=== PATIENT | male | born 1930 | race Caucasian/White ===

== ENCOUNTER 2019-04-28 00:28 | Emergency (ER) | payer OTHER ==
[~2019-04-28] VITALS: Ht 170.2 cm; Wt 77.1 kg
[~2019-04-28 00:28] MED LIST: AREDS PO; ASPI325 PO; ASPI325EC; ASPI81CH; ASTEPRO NASAL SPRAY; AZIT250 PO; CLOP75 PO; COLE625 PO; CYAN1000 PO; CYANOCOBALAMIN 1000 MCG; CYCL10 PO; DIAZ5 PO; DIPHENIA PO; EZET10; EZET10 PO; GUAI200 PO; HYDACE5 PO; INDO50; INSLIS75I SC; LISI20 PO; MESA400ER; MESA400ER PO; OMEP20ER; OMEP20ER PO; PROCODE120 PO; SULF500A; SULF500A PO; [UNRECOGNIZED DRUG - OTHER]
[2019-04-28] MEDS ORDERED: PRED20 PO (00:49)
[2019-04-28] MEDS ORDERED: Prinivil10 MG PO (00:50)
[2019-04-28] MEDS ORDERED: ASPI81CH PO (00:50)
[2019-04-28] MEDS ORDERED: OSTERA TABLET1 EACH PO (00:51)
[2019-04-28] MEDS ORDERED: VIT1CAPS12 (00:52)
[2019-04-28 01:02] LABS: BASOPHILS ABSOLUTE AUTO 0.02 K/mm3 (0.00-0.23); BASOPHILS PERCENT AUTO 0 % (0-2); EOSINOPHILS PERCENT AUTO 0 % (0-6); Hematocrit 41.9 % (37.0-53.0); Hemoglobin 13.5 g/dL (13.5-17.5); IMMATURE GRAN ABSOLUTE AUTO 0.06 K/mm3 (0.00-0.10); IMMATURE GRAN PERCENT AUTO 1 % (0-1); LYMPHOCYTES ABSOLUTE AUTO 1.63 K/mm3 (0.84-5.20); LYMPHOCYTES PERCENT AUTO 14 % (21-46); MONOCYTES ABSOLUTE AUTO 0.83 K/mm3 (0.16-1.47); MONOCYTES PERCENT AUTO 7 % (4-13); Mean Corpuscular HGB 30.7 pg (26.0-34.0); Mean Corpuscular HGB Conc 32.2 g/dL (31.5-36.5); Mean Corpuscular Volume 95 fL (80-100); Mean Platelet Volume 9.8 fL (9.1-12.4); NEUTROPHILS ABSOLUTE AUTO 9.08 K/mm3 (1.96-9.15); NEUTROPHILS PERCENT AUTO 78 % (41-73); Platelet Count 252 K/mm3 (150-400); RDW Coefficient Variation 13.2 % (11.7-14.2); RDW Standard Deviation 46.7 fL (35.1-46.3); White Blood Cell Count 11.62 K/mm3 (4.00-11.30)
[2019-04-28 01:22] LABS: Alanine Aminotransfer (ALT/SGP 19 U/L (12-78); Albumin, Blood 3.5 g/dL (3.4-5.0); Albumin/Globulin Ratio 0.8 (0.8-1.8); Alk Phos 104 U/L (50-136); Anion Gap 8 mmol/L (6-16); Aspartate Aminotrans (AST/SGOT 23 U/L (12-37); Bilirubin, Total 0.2 mg/dL (0.1-1.0); Blood Urea Nitrogen 42 mg/dL (8-24); Bun/Creatinine Ratio 36.2 (12.0-20.0); CO2, Blood 25 mmol/L (21-32); Calcium, Blood 9.2 mg/dL (8.5-10.1); Chloride, Blood 110 mmol/L (98-108); Creatinine, Blood 1.16 mg/dL (0.60-1.20); Globulin, Blood 4.4 g/dL (2.2-4.0); Glomerular Filtration Rate >60 (60-); Glucose, Blood 144 mg/dL (70-99); Potassium, Blood 4.4 mmol/L (3.5-5.5); Sodium, Blood 143 mmol/L (136-145); Total Protein, Blood 7.9 g/dL (6.4-8.2); Troponin I <0.015 ng/mL (0.000-0.040)
== END 2019-04-28 05:34 | disposition home or self-care (01) ==
LOC: ER 00:28
PROVIDERS: Emergency Medicine
DX: R42 Dizziness and giddiness (principal); I10 Essential (primary) hypertension; K21.9 Gastro-esophageal reflux disease without esophagitis; Z79.82 Long term (current) use of aspirin; Z79.899 Other long term (current) drug therapy
CPT/HCPCS: 36415; 71046; 80053; 84484; 85025; 93005; 93010; J2405

== ENCOUNTER 2019-06-01 21:10 | Inpatient (IN) | payer OTHER ==
[~2019-06-01] VITALS: Ht 170.2 cm; Wt 68.0 kg
[~2019-06-01 21:10] MED LIST changes: +Aspirin EC81 MG PO; +MULTIVITAMIN1 EACH PO; +PRED20 PO; +Prinivil10 MG PO; +VIT1CAPS12 PO
[2019-06-01 22:04] LABS: BASOPHILS ABSOLUTE AUTO 0.06 K/mm3 (0.00-0.23); BASOPHILS PERCENT AUTO 1 % (0-2); EOSINOPHILS ABSOLUTE AUTO 0.11 K/mm3 (0.00-0.68); EOSINOPHILS PERCENT AUTO 2 % (0-6); Hematocrit 41.2 % (37.0-53.0); Hemoglobin 13.5 g/dL (13.5-17.5); IMMATURE GRAN ABSOLUTE AUTO 0.01 K/mm3 (0.00-0.10); IMMATURE GRAN PERCENT AUTO 0 % (0-1); LYMPHOCYTES ABSOLUTE AUTO 1.19 K/mm3 (0.84-5.20); LYMPHOCYTES PERCENT AUTO 22 % (21-46); MONOCYTES ABSOLUTE AUTO 0.82 K/mm3 (0.16-1.47); MONOCYTES PERCENT AUTO 15 % (4-13); Mean Corpuscular HGB 30.5 pg (26.0-34.0); Mean Corpuscular HGB Conc 32.8 g/dL (31.5-36.5); Mean Corpuscular Volume 93 fL (80-100); Mean Platelet Volume 9.8 fL (9.1-12.4); NEUTROPHILS ABSOLUTE AUTO 3.33 K/mm3 (1.96-9.15); NEUTROPHILS PERCENT AUTO 60 % (41-73); Platelet Count 240 K/mm3 (150-400); RDW Coefficient Variation 13.6 % (11.7-14.2); RDW Standard Deviation 46.5 fL (35.1-46.3); Red Blood Cell Count 4.43 M/mm3 (4.30-5.90); White Blood Cell Count 5.52 K/mm3 (4.00-11.30)
[2019-06-01 22:19] LABS: International Normalized Ratio 1.01; Prothrombin Time Results 10.8 Sec (9.7-11.5)
[2019-06-01 22:23] LABS: Albumin/Globulin Ratio 0.7 (0.8-1.8); Bilirubin, Total 0.4 mg/dL (0.1-1.0); Bun/Creatinine Ratio 25.3 (12.0-20.0); Calcium, Blood 9.4 mg/dL (8.5-10.1); Creatinine, Blood 1.66 mg/dL (0.60-1.20); Globulin, Blood 4.1 g/dL (2.2-4.0); Potassium, Blood 4.7 mmol/L (3.5-5.5); Total Protein, Blood 7.1 g/dL (6.4-8.2)
[2019-06-02 00:48] LABS: Source, Urine Clean Catch
[2019-06-02 00:56] LABS: Bilirubin, Urine Neg (Neg); Blood, Urine 3+ (Neg); Glucose Qualitative, Urine Neg (Neg); Ketones, Urine 1+ (Neg); Leukocyte Esterase, Urine 3+ (Neg); Nitrite, Urine Neg (Neg); Protein, Urine 2+ (Neg); Specific Gravity, Urine 1.015 (1.003-1.022); Urobilinogen, Urine NORM (Normal)
[2019-06-02 01:03] LABS: Appearance, Urine Hazy (Clear); Color, Urine Yellow (P-Yellow)
[2019-06-02 01:04] LABS: Bacteria Many /hpf; Red Blood Cells, Urine Rare /hpf (0-2); Squamous Epithelial Cells Not Seen /hpf (Few); White Blood Cells, Urine TNTC /hpf (0-5)
[2019-06-02 03:21] LABS: Adenovirus Not Detected (NOT DETECT); Bordetella pertussis Not Detected (NOT DETECT); Chlamydophila pneumoniae Not Detected (NOT DETECT); Coronavirus 229E Not Detected (NOT DETECT); Coronavirus HKU1 Not Detected (NOT DETECT); Coronavirus NL63 Not Detected (NOT DETECT); Coronavirus OC43 Not Detected (NOT DETECT); Human Metapneumovirus Not Detected (NOT DETECT); Human Rhinovirus/Enterovirus Not Detected (NOT DETECT); Influenza A/2009-H1 Not Detected (NOT DETECT); Influenza A/H1 Not Detected (NOT DETECT); Influenza A/H3 Not Detected (NOT DETECT); Influenza B Not Detected (NOT DETECT); Mycoplasma pneumoniae Not Detected (NOT DETECT); Parainfluenza Virus 1 Not Detected (NOT DETECT); Parainfluenza Virus 2 Not Detected (NOT DETECT); Parainfluenza Virus 3 Not Detected (NOT DETECT); Parainfluenza Virus 4 Not Detected (NOT DETECT); Respiratory Syncytial Virus Not Detected (NOT DETECT)
[2019-06-03 05:43] LABS: Bun/Creatinine Ratio 22.8 (12.0-20.0); Calcium, Blood 9.3 mg/dL (8.5-10.1); Creatinine, Blood 1.45 mg/dL (0.60-1.20); Potassium, Blood 4.6 mmol/L (3.5-5.5)
[2019-06-04 05:32] LABS: BASOPHILS ABSOLUTE AUTO 0.08 K/mm3 (0.00-0.23); BASOPHILS PERCENT AUTO 2 % (0-2); EOSINOPHILS ABSOLUTE AUTO 0.18 K/mm3 (0.00-0.68); EOSINOPHILS PERCENT AUTO 4 % (0-6); Hematocrit 38.6 % (37.0-53.0); Hemoglobin 12.2 g/dL (13.5-17.5); IMMATURE GRAN ABSOLUTE AUTO 0.02 K/mm3 (0.00-0.10); IMMATURE GRAN PERCENT AUTO 0 % (0-1); LYMPHOCYTES PERCENT AUTO 30 % (21-46); MONOCYTES ABSOLUTE AUTO 0.94 K/mm3 (0.16-1.47); MONOCYTES PERCENT AUTO 20 % (4-13); Mean Corpuscular HGB 29.8 pg (26.0-34.0); Mean Corpuscular HGB Conc 31.6 g/dL (31.5-36.5); Mean Corpuscular Volume 94 fL (80-100); NEUTROPHILS ABSOLUTE AUTO 2.01 K/mm3 (1.96-9.15); NEUTROPHILS PERCENT AUTO 44 % (41-73); Platelet Count 205 K/mm3 (150-400); RDW Coefficient Variation 13.7 % (11.7-14.2); RDW Standard Deviation 47.2 fL (35.1-46.3); White Blood Cell Count 4.63 K/mm3 (4.00-11.30)
[2019-06-04 05:58] LABS: Bun/Creatinine Ratio 21.6 (12.0-20.0); Calcium, Blood 9.5 mg/dL (8.5-10.1); Creatinine, Blood 1.48 mg/dL (0.60-1.20); Potassium, Blood 4.7 mmol/L (3.5-5.5)
[2019-06-04] MEDS ORDERED: Augmentin 875-1 EACH PO (10:01)
== END 2019-06-04 10:34 | disposition home or self-care (01) | DRG 189 ==
LOC: ER 21:10 → MEDS 06-02 01:34 → ENPENDDIS 06-04 09:54 → MEDS 06-04 10:34
PROVIDERS: Emergency Medicine; Family Medicine; Internal Medicine; Nurse Practitioner; ADMIT Family Medicine
PROC: 8E0ZXY6 Isolation (ICD-10-PCS; principal; 2019-06-02)
DX: J96.01 Acute respiratory failure with hypoxia (principal); N17.9 Acute kidney failure, unspecified; N39.0 Urinary tract infection, site not specified; Z79.82 Long term (current) use of aspirin; K21.9 Gastro-esophageal reflux disease without esophagitis; N18.3 Chronic kidney disease, stage 3 (moderate); B96.20 Unspecified Escherichia coli [E. coli] as the cause of diseases classified elsewhere; I12.9 Hypertensive chronic kidney disease with stage 1 through stage 4 chronic kidney disease, or unspecified chronic kidney disease; Z87.891 Personal history of nicotine dependence
CPT/HCPCS: 0099U; 36415; 71045; 80048; 80053; 81001; 82728; 83605; 84145; 85025; 85610; 85730; 86140; 87040; 87077; 87086; 87186; 93005; 93010; 96374; 99285-25; A9270; A9270-GY; J0696; J1650; J7030; J7040

== ENCOUNTER 2019-06-04 21:37 | Inpatient (IN) | payer OTHER ==
[~2019-06-04] VITALS: Ht 170.2 cm; Wt 74.0 kg
[~2019-06-04 21:37] MED LIST changes: +ASPI81CH PO; -Aspirin EC81 MG PO; +Augmentin 875-1 EACH PO; -MULTIVITAMIN1 EACH PO; -OMEP20ER PO; +OSTERA TABLET1 EACH PO
[2019-06-04 22:34] LABS: BASOPHILS ABSOLUTE AUTO 0.04 K/mm3 (0.00-0.23); BASOPHILS PERCENT AUTO 1 % (0-2); EOSINOPHILS ABSOLUTE AUTO 0.16 K/mm3 (0.00-0.68); EOSINOPHILS PERCENT AUTO 4 % (0-6); Hematocrit 41.2 % (37.0-53.0); Hemoglobin 13.4 g/dL (13.5-17.5); IMMATURE GRAN ABSOLUTE AUTO 0.01 K/mm3 (0.00-0.10); IMMATURE GRAN PERCENT AUTO 0 % (0-1); LYMPHOCYTES ABSOLUTE AUTO 1.21 K/mm3 (0.84-5.20); LYMPHOCYTES PERCENT AUTO 27 % (21-46); MONOCYTES ABSOLUTE AUTO 0.77 K/mm3 (0.16-1.47); MONOCYTES PERCENT AUTO 17 % (4-13); Mean Corpuscular HGB 30.2 pg (26.0-34.0); Mean Corpuscular HGB Conc 32.5 g/dL (31.5-36.5); Mean Corpuscular Volume 93 fL (80-100); Mean Platelet Volume 9.7 fL (9.1-12.4); NEUTROPHILS ABSOLUTE AUTO 2.35 K/mm3 (1.96-9.15); NEUTROPHILS PERCENT AUTO 52 % (41-73); Platelet Count 206 K/mm3 (150-400); RDW Coefficient Variation 13.3 % (11.7-14.2); RDW Standard Deviation 45.8 fL (35.1-46.3); Red Blood Cell Count 4.43 M/mm3 (4.30-5.90); White Blood Cell Count 4.54 K/mm3 (4.00-11.30)
[2019-06-04] MEDS ORDERED: OMEP20ER PO (22:45)
[2019-06-04 22:49] LABS: Albumin, Blood 2.9 g/dL (3.4-5.0); Albumin/Globulin Ratio 0.7 (0.8-1.8); Bilirubin, Total 0.3 mg/dL (0.1-1.0); Calcium, Blood 10.6 mg/dL (8.5-10.1); Creatinine, Blood 1.54 mg/dL (0.60-1.20); Potassium, Blood 4.5 mmol/L (3.5-5.5); Total Protein, Blood 6.9 g/dL (6.4-8.2)
[2019-06-04 23:32] LABS: C-REACTIVE PROTEIN, EXT RANGE 6.85 mg/dL (0.000-0.300)
--- NOTE | 2019-06-05 00:37 | NUR ---
called ER to speak to BIANCA De La Garza who has been caring for 88 year old Male just DC home yesterday and being readmitted with fever and resp issues with SOB. PT has covid 19 test results pending will be in contact droplet precaution enhanced measures. Has resp panel collection pending and had UTI on dc was on oral augmentin will be given rocephin to tx. PT reports bladder CANCER with txs in [place] that are bladder instillations. Will be on bioxx to prevent hypoxia, oxygen to keep sats greater than 90%. Await admission for OBS status.
--- NOTE | 2019-06-05 01:08 | NUR ---
report recieved admission pending obs status. BIANCA De La Garza in ER will start rocephin.
--- NOTE | 2019-06-05 02:54 | NUR ---
88 year old Male dc home yeasterday back with fever at home and took tylenol then to ER. Afebile on floor. Rocephin given to tx ECOLI UTI. PT has hacking moist nonprod cough. Lungs clear. Recent covid 19 pending results neg resp panel. 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 Middle of May started tx for bladder cancer, instillation to bladder, cancelled next 2 txs due to oral infection & hospitalization. Lives alone has DTR Pat in area. Resp panel collected results pending.
[2019-06-05 04:16] LABS: Adenovirus Not Detected (NOT DETECT); Coronavirus 229E Not Detected (NOT DETECT); Coronavirus HKU1 Not Detected (NOT DETECT); Coronavirus NL63 Not Detected (NOT DETECT)
[2019-06-05 04:17] LABS: Bordetella pertussis Not Detected (NOT DETECT); Chlamydophila pneumoniae Not Detected (NOT DETECT); Coronavirus OC43 Not Detected (NOT DETECT); Human Metapneumovirus Not Detected (NOT DETECT); Human Rhinovirus/Enterovirus Not Detected (NOT DETECT); Influenza A/2009-H1 Not Detected (NOT DETECT); Influenza A/H1 Not Detected (NOT DETECT); Influenza A/H3 Not Detected (NOT DETECT); Influenza B Not Detected (NOT DETECT); Mycoplasma pneumoniae Not Detected (NOT DETECT); Parainfluenza Virus 1 Not Detected (NOT DETECT); Parainfluenza Virus 2 Not Detected (NOT DETECT); Parainfluenza Virus 3 Not Detected (NOT DETECT); Parainfluenza Virus 4 Not Detected (NOT DETECT); Respiratory Syncytial Virus Not Detected (NOT DETECT)
--- NOTE | 2019-06-05 05:10 | NUR ---
PT co chills and fever warm blankets and increased room temp. Resting for few hours than calls to report feeling fevered. Tylenol 650 mg po given and t 100.9. PT has poor oral intake sips with meds only. Voids x 2 , denies anorexia or wt loss. Ensure offered at bedside PT says he sips on ensure supplements baseline. PT up to bathroom sat 79 on room air after cough deep breath. Applied 2 l NC because PT was tachycardic to 130s. 100.9 temporal t pulse 112, o2 sat 94 % 2 l NC. Resp panel negative. Covid 19 results still pending
--- NOTE | 2019-06-05 13:03 | NUR ---
PATIENT COMPLAINING OF CHILLS. REQUESTED TYLENOL.
--- NOTE | 2019-06-05 16:57 | NUR ---
PATIENT IS ALERT AND ORIENTED AND COOPERATIVE WITH CARE. PATIENT HAS BEEN AFEBRILE THIS SHIFT. PATIENT DID COMPLAIN OF HAVING THE CHILLS AND SUSPECTED A FEVER WAS TO FOLLOW. TYLENOL WAS GIVEN AT THE PATIENT'S REQUEST. OF RIGHT NOW, THE PATIENT'S COMPLAINT OF "CHILLS" HAS SUBSIDED AND NO FEVER. PATIENT REPORTS FEELING BETTER. DR. RODRIGUEZ STARTED THE PATIENT ON IV LEVAQUIN 500MG TODAY. THE PATIENT HAS NO COMPLAINTS OF SOB. PATIENT IS ON RA WITH OXYGEN SATURATIONS IN THE 90'S. THE COVID-19 LAB TEST THAT WAS SENT A COUPLE DAYS AGO WAS INSUFFICIENT THEREFORE A NEW SAMPLE WAS COLLECTED AND SENT TO THE LAB THIS MORNING. WILL CONTINUE TO MONITOR.
--- NOTE | 2019-06-05 22:04 | NUR ---
rigors fever. PT has been having intermittant rigors and fevers for last 2 weeks. He has had cheomotherapy tx of bladder cancer started befire fevers began , oral abscess with root canal and hospitalized with rule out covid 19, UTI Ecoli & sent home on antibiotics augmentin to tx infection. back last night with rigors and fever at home after taking one dose of oral augmentin. Pt called to say he felt feverish oral t 101.6 Tylenol 650 mg given will recheck temp. Was started on rocephin last night changed to IV levaquin today. Encouraged oral intake and provided ensure supplements as per home preference. Encourged cough deep breathe to clear upper airway. Covid 19 repeated due to insufficent sample. Provide support for current illnesses.
--- NOTE | 2019-06-05 22:58 | NUR ---
temp 99.0 after tylenol administeration, rigors subsided per PT report. taking more oral fluids with encouragement and setup.
[2019-06-06 04:53] LABS: BASOPHILS ABSOLUTE AUTO 0.05 K/mm3 (0.00-0.23); BASOPHILS PERCENT AUTO 1 % (0-2); EOSINOPHILS PERCENT AUTO 2 % (0-6); Hematocrit 36.1 % (37.0-53.0); Hemoglobin 11.8 g/dL (13.5-17.5); IMMATURE GRAN ABSOLUTE AUTO 0.01 K/mm3 (0.00-0.10); IMMATURE GRAN PERCENT AUTO 0 % (0-1); LYMPHOCYTES ABSOLUTE AUTO 1.53 K/mm3 (0.84-5.20); LYMPHOCYTES PERCENT AUTO 30 % (21-46); MONOCYTES ABSOLUTE AUTO 1.16 K/mm3 (0.16-1.47); MONOCYTES PERCENT AUTO 23 % (4-13); Mean Corpuscular HGB 30.7 pg (26.0-34.0); Mean Corpuscular HGB Conc 32.7 g/dL (31.5-36.5); Mean Corpuscular Volume 94 fL (80-100); Mean Platelet Volume 9.4 fL (9.1-12.4); NEUTROPHILS ABSOLUTE AUTO 2.25 K/mm3 (1.96-9.15); NEUTROPHILS PERCENT AUTO 44 % (41-73); Platelet Count 165 K/mm3 (150-400); RDW Coefficient Variation 13.6 % (11.7-14.2); RDW Standard Deviation 46.6 fL (35.1-46.3); Red Blood Cell Count 3.84 M/mm3 (4.30-5.90)
[2019-06-06 05:04] LABS: Bun/Creatinine Ratio 20.4 (12.0-20.0); Calcium, Blood 9.6 mg/dL (8.5-10.1); Creatinine, Blood 1.62 mg/dL (0.60-1.20); Potassium, Blood 4.6 mmol/L (3.5-5.5)
--- NOTE | 2019-06-06 10:01 | NUR ---
LISINOPRIL HELD L/M ON DR. FREDERICK'S CELL PHONE RE MORNING DOSE OF LISINOPRIL HELD D/T BP 98/65.
[2019-06-06 10:30] LABS: BASOPHILS ABSOLUTE AUTO 0.04 K/mm3 (0.00-0.23); BASOPHILS PERCENT AUTO 1 % (0-2); EOSINOPHILS ABSOLUTE AUTO 0.11 K/mm3 (0.00-0.68); EOSINOPHILS PERCENT AUTO 2 % (0-6); Hematocrit 37.2 % (37.0-53.0); Hemoglobin 12.1 g/dL (13.5-17.5); IMMATURE GRAN ABSOLUTE AUTO 0.03 K/mm3 (0.00-0.10); IMMATURE GRAN PERCENT AUTO 1 % (0-1); LYMPHOCYTES ABSOLUTE AUTO 1.13 K/mm3 (0.84-5.20); LYMPHOCYTES PERCENT AUTO 21 % (21-46); MONOCYTES ABSOLUTE AUTO 0.95 K/mm3 (0.16-1.47); MONOCYTES PERCENT AUTO 18 % (4-13); Mean Corpuscular HGB 30.3 pg (26.0-34.0); Mean Corpuscular HGB Conc 32.5 g/dL (31.5-36.5); Mean Corpuscular Volume 93 fL (80-100); Mean Platelet Volume 9.4 fL (9.1-12.4); NEUTROPHILS ABSOLUTE AUTO 3.09 K/mm3 (1.96-9.15); NEUTROPHILS PERCENT AUTO 58 % (41-73); Platelet Count 163 K/mm3 (150-400); RDW Coefficient Variation 13.5 % (11.7-14.2); Red Blood Cell Count 3.99 M/mm3 (4.30-5.90); White Blood Cell Count 5.35 K/mm3 (4.00-11.30)
[2019-06-06 10:42] LABS: Albumin, Blood 2.4 g/dL (3.4-5.0); Albumin/Globulin Ratio 0.6 (0.8-1.8); Bilirubin, Total 0.3 mg/dL (0.1-1.0); Bun/Creatinine Ratio 20.3 (12.0-20.0); Calcium, Blood 9.6 mg/dL (8.5-10.1); Creatinine, Blood 1.53 mg/dL (0.60-1.20); Globulin, Blood 3.7 g/dL (2.2-4.0); Potassium, Blood 4.4 mmol/L (3.5-5.5); Total Protein, Blood 6.1 g/dL (6.4-8.2)
[2019-06-06] MEDS ORDERED: LEVFLO500 PO (16:04)
--- NOTE | 2019-06-06 16:41 | NUR ---
Discharge Summary A/O, patient discharging to home. Discharge paperwork and education reviewed with patient, meds faxed to [facility] in [place]. Escorted by FUR TRIMMING MACHINE OPERATOR via w/c, transported home via personal vehicle. Personal belongings and incentive spirometer sent home with patient, teach-back method was used with IS teaching.
== END 2019-06-06 16:45 | disposition home or self-care (01) | DRG 189 ==
LOC: ER 21:37 → MEDS 21:39
PROVIDERS: Family Medicine; Nurse Practitioner; Nurse Practitioner Acute Care; ADMIT Internal Medicine
DX: J96.01 Acute respiratory failure with hypoxia (principal); N39.0 Urinary tract infection, site not specified; J98.11 Atelectasis; K21.9 Gastro-esophageal reflux disease without esophagitis; I10 Essential (primary) hypertension; I73.9 Peripheral vascular disease, unspecified; E78.5 Hyperlipidemia, unspecified; M19.90 Unspecified osteoarthritis, unspecified site; R74.8 Abnormal levels of other serum enzymes; Z87.891 Personal history of nicotine dependence; Z79.82 Long term (current) use of aspirin
CPT/HCPCS: 0099U; 36415; 71045; 71250; 74176; 80048; 80053; 82728; 83615; 83880; 84145; 85025; 86140; 94640; 94760; 96361; 96374; 99285-25; A9270; A9270-GY; G0378; J0696; J1956; J7030; J7050; U0002

== ENCOUNTER 2019-06-21 13:29 | Inpatient (IN) | payer OTHER ==
[~2019-06-21] VITALS: Ht 170.2 cm; Wt 71.2 kg
[~2019-06-21 13:29] MED LIST changes: -ALBU90OI INH; -AZIT500 PO; -CEFD300 PO; -ELIQUIS5 MG PO; -Florastor250 MG PO
[2019-06-21 16:17] LABS: PCO2 Arterial 33.8 mmHg (35-45); PO2 Arterial 69.8 mmHg (80-100); pH Blood Arterial 7.47 (7.35-7.45)
[2019-06-21 17:22] LABS: International Normalized Ratio 1.02; Prothrombin Time Results 10.9 Sec (9.7-11.5)
--- NOTE | 2019-06-21 19:32 | NUR ---
ADMISSION NOTE PT TO ICU 11 AT 1840, TRANSFERRED TO BED INDEPENDENTLY, GAIT STEADY. VSS, SPO2 MID 90'S ON 2L/NC, PT DENES SOB, REPORTS LEFT SIDE/RIB PAIN WITH DEEP INSPIRATION, LOW GRADE FEVER PRESENT. HR IRREGULAR WITH PAC'S, RATE 90-100, PT DENIES CHEST PAIN/PALPITATIONS. VOIDING WITHOUT DIFFICULTY, CLEAR YELLOW. HEPARIN INFUSING AT 15U/KG/HR PER ORDERS, DOSING WEIGHT 69KG. PT DENIES C/O OR NEEDS, IS PLEASANT AND COOPERATIVE WITH CARE, ALERT AND ORIENTED X4. PT SITTING AT BEDSIDE, PHONE AND CALL LIGHT IN REACH, PT IN DROPLET PRECAUTIONS FOR COVID R/O. REPORT TO ONCOMING RN.
[2019-06-22 00:11] LABS: Adenovirus Not Detected (NOT DETECT); Bordetella pertussis Not Detected (NOT DETECT); Chlamydophila pneumoniae Not Detected (NOT DETECT); Coronavirus 229E Not Detected (NOT DETECT); Coronavirus HKU1 Not Detected (NOT DETECT); Coronavirus NL63 Not Detected (NOT DETECT); Coronavirus OC43 Not Detected (NOT DETECT); Human Metapneumovirus Not Detected (NOT DETECT); Human Rhinovirus/Enterovirus Not Detected (NOT DETECT); Influenza A/2009-H1 Not Detected (NOT DETECT); Influenza A/H1 Not Detected (NOT DETECT); Influenza A/H3 Not Detected (NOT DETECT); Influenza B Not Detected (NOT DETECT); Mycoplasma pneumoniae Not Detected (NOT DETECT); Parainfluenza Virus 1 Not Detected (NOT DETECT); Parainfluenza Virus 2 Not Detected (NOT DETECT); Parainfluenza Virus 3 Not Detected (NOT DETECT); Parainfluenza Virus 4 Not Detected (NOT DETECT); Respiratory Syncytial Virus Not Detected (NOT DETECT)
--- NOTE | 2019-06-22 05:14 | NUR ---
SHIFT SUMMARY PATIENT SLPT WELL THROUGH NIGHT. NO ACUTE CHANGES OVERNIGHT. NO C/O PAIN. VSS. ASSESSMENT IS CHARTED. WILL CONTINUE TO MONITOR.
--- NOTE | 2019-06-22 08:00 | NUR ---
Pt sitting up at edge of bed. Able to transfer himself back to bed without assistance. Biox 87% on RA. Placed 2L oxygen per NC and biox increased to 90's. Pt denies pain, SOB or chest pain at this time. Pulses palp. LS diminished in bases. BT positive. IVF running per orders, IV heprin running per orders. Pt denies needs. Call light in reach. Will continue to mnoitor and treat.
[2019-06-22 08:10] LABS: BASOPHILS ABSOLUTE AUTO 0.05 K/mm3 (0.00-0.23); BASOPHILS PERCENT AUTO 1 % (0-2); EOSINOPHILS ABSOLUTE AUTO 0.19 K/mm3 (0.00-0.68); EOSINOPHILS PERCENT AUTO 3 % (0-6); Hematocrit 35.6 % (37.0-53.0); Hemoglobin 11.6 g/dL (13.5-17.5); IMMATURE GRAN ABSOLUTE AUTO 0.03 K/mm3 (0.00-0.10); IMMATURE GRAN PERCENT AUTO 0 % (0-1); LYMPHOCYTES ABSOLUTE AUTO 1.04 K/mm3 (0.84-5.20); LYMPHOCYTES PERCENT AUTO 14 % (21-46); MONOCYTES ABSOLUTE AUTO 1.12 K/mm3 (0.16-1.47); MONOCYTES PERCENT AUTO 15 % (4-13); Mean Corpuscular HGB 30.1 pg (26.0-34.0); Mean Corpuscular HGB Conc 32.6 g/dL (31.5-36.5); Mean Corpuscular Volume 93 fL (80-100); NEUTROPHILS ABSOLUTE AUTO 5.11 K/mm3 (1.96-9.15); NEUTROPHILS PERCENT AUTO 68 % (41-73); Platelet Count 157 K/mm3 (150-400); RDW Coefficient Variation 14.1 % (11.7-14.2); RDW Standard Deviation 47.6 fL (35.1-46.3); Red Blood Cell Count 3.85 M/mm3 (4.30-5.90); White Blood Cell Count 7.54 K/mm3 (4.00-11.30)
[2019-06-22 08:38] LABS: Albumin, Blood 2.2 g/dL (3.4-5.0); Albumin/Globulin Ratio 0.6 (0.8-1.8); Bilirubin, Total 0.5 mg/dL (0.1-1.0); Calcium, Blood 8.6 mg/dL (8.5-10.1); Creatinine, Blood 1.24 mg/dL (0.60-1.20); Globulin, Blood 3.4 g/dL (2.2-4.0); Potassium, Blood 4.3 mmol/L (3.5-5.5); Total Protein, Blood 5.6 g/dL (6.4-8.2)
--- NOTE | 2019-06-22 13:46 | NUR ---
Echocardiogram completed.
--- NOTE | 2019-06-22 17:24 | NUR ---
Shift Summary: Pt sitting up at edge of bed at this time. Pt was titrated down to RA during the day. IVF were stopped per orders. Heprin gtt was stopped per orders and lovenox injection was given. Pt has denied pain, CP or SOB throughout the shift. Stable at end of shift. Will report to night RN.
--- NOTE | 2019-06-22 20:00 | NUR ---
ASSUMED CARE OF PT AT 1915. REPORT RECEIVED. PT PRESENTS IN BED IN NO DISTRESS. NO COMPLAINTS OF DYSPNEA OR CHEST PAIN OR PRESSURE. HAS BEEN UP IN ROOM INDEPENDENTLY. WILL REVIEW CHART AND PLAN OF CARE FOR THIS PT.
--- NOTE | 2019-06-23 02:00 | NUR ---
PT CONTINUES WITHOUT COMPLAINTS. REMAINS ON ROOM AIR WITHOUT DYSPNEA. MAINTAINS > 90 PERCENT.
--- NOTE | 2019-06-23 06:30 | NUR ---
PT HAS BEEN INDEPENDENT IN ROOM. HAS BEEN UP TO COMMODE THIS AM AND WAS ABLE TO HAVE BM. NO COMPLAINTS. NO C/O'S VOICED BY PT THIS NIGHT. REMAINS VERY PLEASANT AND VERY COOPERATIVE WITH CARE. WILL CONTINUE TO MONITOR PT AND WILL REPORT OFF TO ONCOMING RN.
--- NOTE | 2019-06-23 09:00 | NUR ---
BEGINNING OF SHIFT Assumed care of pt at 0700. Report received from Oliver VALENZUELA. Pt is A&O x 4. Independent in room. Medical floor status without telemetry. No IV lines connected. Steady on feet. Pt on room air. SpO2 90% or greater. Denies shortness of breath. When asked if he feels ready to go home, pt states "I was ready to go home yesterday". Plans for pt to discharge when COVID-19 results are complete.
[2019-06-23] MEDS ORDERED: AZIT500 PO (13:46)
[2019-06-23] MEDS ORDERED: ALBU90OI INH (13:46)
[2019-06-23] MEDS ORDERED: ELIQUIS5 MG PO (13:48)
[2019-06-23] MEDS ORDERED: Florastor250 MG PO (13:48)
[2019-06-23] MEDS ORDERED: CEFD300 PO (13:49)
--- NOTE | 2019-06-23 15:51 | NUR ---
DISCHARGE Pt discharged from unit at 1430 via wheelchair, accompanied by this RN. COVID-19 test still pending. Phone number on facesheet verified as correct by patient. Medications faxed to [facility] pharmacy. Discharged education provided to pt, pt verbalized understading of follow up appointments, new medications, and medication side effects. Provided with unit phone number for any questions or concerns.
--- NOTE | 2019-06-23 15:54 | NUR ---
DR ERICKSON IN TO SEE PT Provider states pt may go home today.
== END 2019-06-23 14:25 | disposition home or self-care (01) | DRG 871 ==
LOC: CT 13:29 → ER 13:29 → CT 13:30 → ICUW 13:30 → ER 13:30 → ICUW 13:30 → EDSTATUS 13:30 → ICUW 17:52 → ER 17:52 → ICUW 17:52
PROVIDERS: Nurse Practitioner Acute Care; Physician Assistant; ADMIT Internal Medicine
PROC: 8E0ZXY6 Isolation (ICD-10-PCS; principal; 2019-06-21)
DX: A41.9 Sepsis, unspecified organism (principal); J18.9 Pneumonia, unspecified organism; I26.99 Other pulmonary embolism without acute cor pulmonale; J96.01 Acute respiratory failure with hypoxia; J44.0 Chronic obstructive pulmonary disease with (acute) lower respiratory infection; E87.3 Alkalosis; I82.432 Acute embolism and thrombosis of left popliteal vein; I82.442 Acute embolism and thrombosis of left tibial vein; I82.452 Acute embolism and thrombosis of left peroneal vein; J44.1 Chronic obstructive pulmonary disease with (acute) exacerbation; I12.9 Hypertensive chronic kidney disease with stage 1 through stage 4 chronic kidney disease, or unspecified chronic kidney disease; N18.9 Chronic kidney disease, unspecified; I95.9 Hypotension, unspecified; E78.5 Hyperlipidemia, unspecified; K21.9 Gastro-esophageal reflux disease without esophagitis; I73.9 Peripheral vascular disease, unspecified; M19.90 Unspecified osteoarthritis, unspecified site; M85.80 Other specified disorders of bone density and structure, unspecified site; C67.9 Malignant neoplasm of bladder, unspecified; Z66 Do not resuscitate; Z87.891 Personal history of nicotine dependence; Z79.82 Long term (current) use of aspirin; Z79.899 Other long term (current) drug therapy
CPT/HCPCS: 0099U; 36415; 36600; 71260; 80053; 82803; 84484; 85025; 85610; 85730; 87040; 93005; 93010; 93306; 93970; 94640; 96365; 96366; 96375; 99285-25; A9270; J0696; J1644; J1650; J7030; J7040; J7120; Q9967; U0002

== ENCOUNTER → 2019-06-21 | Outpatient (CLI) | payer OTHER ==
[~2019-06-21] MED LIST changes: +ALBU90OI INH; -ASPI81CH PO; +AZIT500 PO; +Aspirin EC81 MG PO; +CEFD300 PO; +ELIQUIS5 MG PO; +Florastor250 MG PO; +LEVFLO500 PO; +MULTIVITAMIN1 EACH PO; +OMEP20ER PO; -OSTERA TABLET1 EACH PO
[2019-06-21 11:00] LABS: BASOPHILS ABSOLUTE AUTO 0.04 K/mm3 (0.00-0.23); BASOPHILS PERCENT AUTO 0 % (0-2); EOSINOPHILS PERCENT AUTO 1 % (0-6); Hematocrit 40.4 % (37.0-53.0); Hemoglobin 13.5 g/dL (13.5-17.5); IMMATURE GRAN ABSOLUTE AUTO 0.08 K/mm3 (0.00-0.10); IMMATURE GRAN PERCENT AUTO 1 % (0-1); LYMPHOCYTES PERCENT AUTO 13 % (21-46); MONOCYTES ABSOLUTE AUTO 1.55 K/mm3 (0.16-1.47); MONOCYTES PERCENT AUTO 13 % (4-13); Mean Corpuscular HGB 30.5 pg (26.0-34.0); Mean Corpuscular HGB Conc 33.4 g/dL (31.5-36.5); Mean Corpuscular Volume 91 fL (80-100); Mean Platelet Volume 9.3 fL (9.1-12.4); NEUTROPHILS ABSOLUTE AUTO 8.36 K/mm3 (1.96-9.15); NEUTROPHILS PERCENT AUTO 72 % (41-73); Platelet Count 245 K/mm3 (150-400); RDW Standard Deviation 46.5 fL (35.1-46.3); Red Blood Cell Count 4.43 M/mm3 (4.30-5.90); White Blood Cell Count 11.63 K/mm3 (4.00-11.30)
[2019-06-21 11:04] LABS: Bun/Creatinine Ratio 23.9 (12.0-20.0); Calcium, Blood 9.7 mg/dL (8.5-10.1); Creatinine, Blood 1.59 mg/dL (0.60-1.20); Potassium, Blood 4.7 mmol/L (3.5-5.5)
== END | disposition home or self-care (01) ==
LOC: LAB SHORT 10:53 → LAB EV 10:53
PROVIDERS: Physician Assistant Surgical
DX: I95.9 Hypotension, unspecified (principal); J18.9 Pneumonia, unspecified organism; R05 Cough
CPT/HCPCS: 80048; 83880; 85025; 85379

== ENCOUNTER 2019-06-24 18:12 | Inpatient (IN) | payer OTHER ==
[~2019-06-24] VITALS: Ht 170.2 cm; Wt 74.8 kg
[~2019-06-24 18:12] MED LIST changes: +ALBU90OI INH; +AZIT500 PO; +CEFD300 PO; +ELIQUIS5 MG PO; +Florastor250 MG PO
[2019-06-24 18:47] LABS: BASOPHILS ABSOLUTE AUTO 0.02 K/mm3 (0.00-0.23); BASOPHILS PERCENT AUTO 0 % (0-2); EOSINOPHILS ABSOLUTE AUTO 0.07 K/mm3 (0.00-0.68); EOSINOPHILS PERCENT AUTO 1 % (0-6); Hematocrit 38.7 % (37.0-53.0); Hemoglobin 12.7 g/dL (13.5-17.5); IMMATURE GRAN ABSOLUTE AUTO 0.04 K/mm3 (0.00-0.10); IMMATURE GRAN PERCENT AUTO 0 % (0-1); LYMPHOCYTES ABSOLUTE AUTO 0.28 K/mm3 (0.84-5.20); LYMPHOCYTES PERCENT AUTO 3 % (21-46); MONOCYTES PERCENT AUTO 2 % (4-13); Mean Corpuscular HGB 30.2 pg (26.0-34.0); Mean Corpuscular HGB Conc 32.8 g/dL (31.5-36.5); Mean Corpuscular Volume 92 fL (80-100); Mean Platelet Volume 9.2 fL (9.1-12.4); NEUTROPHILS ABSOLUTE AUTO 8.38 K/mm3 (1.96-9.15); NEUTROPHILS PERCENT AUTO 93 % (41-73); Platelet Count 203 K/mm3 (150-400); RDW Coefficient Variation 13.9 % (11.7-14.2); Red Blood Cell Count 4.21 M/mm3 (4.30-5.90); White Blood Cell Count 8.99 K/mm3 (4.00-11.30)
[2019-06-24 19:08] LABS: Albumin, Blood 2.7 g/dL (3.4-5.0); Albumin/Globulin Ratio 0.6 (0.8-1.8); Bilirubin, Total 0.5 mg/dL (0.1-1.0); Bun/Creatinine Ratio 21.1 (12.0-20.0); Calcium, Blood 9.2 mg/dL (8.5-10.1); Creatinine, Blood 1.47 mg/dL (0.60-1.20); Globulin, Blood 4.2 g/dL (2.2-4.0); Potassium, Blood 4.7 mmol/L (3.5-5.5); Total Protein, Blood 6.9 g/dL (6.4-8.2); Troponin I 0.027 ng/mL (0.000-0.040)
[2019-06-24 20:54] LABS: International Normalized Ratio 1.01; Prothrombin Time Results 10.8 Sec (9.7-11.5)
--- NOTE | 2019-06-24 21:15 | NUR ---
ED ADMIT VIA ROCÍO M STEPPED ONTO FLOOR AND ANB TO BED. DENIES DIZZINESS , OR SOB . SEVERE WEAKNESS, AND STAND BY ASSIST. VERY HOT AND FLUSHED, TEMP 103.3. AND COLD MEASURES APPLIED IMMEDIATELY. SHIVERING AND FANS ON WITH ICE PACKS AND 2 K PADS W/ ICE H2O. ST . 120 HR. LUNGS DIMINISHED BASES AND FAINT CRACKLE LT BASE. LOOSE COUGH AND ENC TO COUGH AND DEEP BREATHE. O2 LEFT ON AT 2L , DNR, VERIFIED W/ RHONDA RIVERA. REVIEWED W/ ACCURACY ABOUT LIVE VIRUS INSTILLED INTO BLADDER IN ORANGE TODAY AND THIS TX HAD CAUSED SAME FEVER 4 WEEKS AGO . REPORTS TO EXPECT BLOOD IN URINE DUE TO DIFFICULTY PASSING CATHETER TODAY IN ORANGE. URINE IS BLOOD TINGED., SENT FOR UA AND COVID / PCR SWAB SENT. DENIES PAIN.
--- NOTE | 2019-06-24 23:00 | NUR ---
FLUIDS VERIFIED W/ DUDLEY, AND WILL RUN REMAINING LITER AT 200 HR DIRECTED. NO ACUTE RESP ISSUES REPOTED TO DUDLEY. REPORTED MAP IN 50'S 78/49. AFEBRILE ORDERED EARLY TYLENOL CAN BE GIVEN AND TEMP NOW 120.4.
[2019-06-24 23:05] LABS: Source, Urine Clean Catch
[2019-06-24 23:15] LABS: Bilirubin, Urine Neg (Neg); Blood, Urine 5+ (Neg); Glucose Qualitative, Urine Neg (Neg); Ketones, Urine 1+ (Neg); Leukocyte Esterase, Urine 1+ (Neg); Nitrite, Urine Neg (Neg); Protein, Urine 2+ (Neg); Urobilinogen, Urine NORM (Normal)
[2019-06-24 23:22] LABS: Appearance, Urine Hazy (Clear); Color, Urine Yellow (P-Yellow)
[2019-06-24 23:23] LABS: Bacteria Few /hpf; Red Blood Cells, Urine TNTC /hpf (0-2); Squamous Epithelial Cells Few /hpf (Few)
[2019-06-25 00:37] LABS: Adenovirus Not Detected (NOT DETECT); Bordetella pertussis Not Detected (NOT DETECT); Chlamydophila pneumoniae Not Detected (NOT DETECT); Coronavirus 229E Not Detected (NOT DETECT); Coronavirus HKU1 Not Detected (NOT DETECT); Coronavirus NL63 Not Detected (NOT DETECT); Coronavirus OC43 Not Detected (NOT DETECT); Human Metapneumovirus Not Detected (NOT DETECT); Human Rhinovirus/Enterovirus Not Detected (NOT DETECT); Influenza A/2009-H1 Not Detected (NOT DETECT); Influenza A/H1 Not Detected (NOT DETECT); Influenza A/H3 Not Detected (NOT DETECT); Influenza B Not Detected (NOT DETECT); Mycoplasma pneumoniae Not Detected (NOT DETECT); Parainfluenza Virus 1 Not Detected (NOT DETECT); Parainfluenza Virus 2 Not Detected (NOT DETECT); Parainfluenza Virus 3 Not Detected (NOT DETECT); Parainfluenza Virus 4 Not Detected (NOT DETECT); Respiratory Syncytial Virus Not Detected (NOT DETECT)
--- NOTE | 2019-06-25 01:00 | NUR ---
PLACED CALL TO DUDLEY W/ LOW BP MAP 50'S . 500 ML BOLUS WILL BE GIVEN. AFEBRILE REPORTED. LACTIC AWARE OF IMPROVEMENT. STANDS TO VOID AND COMPLETELY AFEBRILE . STAND BY ASSIST AND STEADY GAIT. A LITTLE IMPROVEMENT OF BP BETTER MAP. SR 90 HR
[2019-06-25 02:11] LABS: BASOPHILS ABSOLUTE AUTO 0.03 K/mm3 (0.00-0.23); BASOPHILS PERCENT AUTO 0 % (0-2); EOSINOPHILS ABSOLUTE AUTO 0.02 K/mm3 (0.00-0.68); EOSINOPHILS PERCENT AUTO 0 % (0-6); Hematocrit 31.2 % (37.0-53.0); Hemoglobin 9.9 g/dL (13.5-17.5); IMMATURE GRAN ABSOLUTE AUTO 0.06 K/mm3 (0.00-0.10); IMMATURE GRAN PERCENT AUTO 1 % (0-1); LYMPHOCYTES ABSOLUTE AUTO 0.17 K/mm3 (0.84-5.20); LYMPHOCYTES PERCENT AUTO 2 % (21-46); MONOCYTES ABSOLUTE AUTO 0.33 K/mm3 (0.16-1.47); MONOCYTES PERCENT AUTO 3 % (4-13); Mean Corpuscular HGB 29.6 pg (26.0-34.0); Mean Corpuscular HGB Conc 31.7 g/dL (31.5-36.5); Mean Corpuscular Volume 93 fL (80-100); Mean Platelet Volume 9.1 fL (9.1-12.4); NEUTROPHILS ABSOLUTE AUTO 10.16 K/mm3 (1.96-9.15); NEUTROPHILS PERCENT AUTO 94 % (41-73); Platelet Count 133 K/mm3 (150-400); RDW Coefficient Variation 14.2 % (11.7-14.2); RDW Standard Deviation 48.4 fL (35.1-46.3); Red Blood Cell Count 3.35 M/mm3 (4.30-5.90); White Blood Cell Count 10.77 K/mm3 (4.00-11.30)
[2019-06-25 02:33] LABS: Albumin, Blood 2.1 g/dL (3.4-5.0); Albumin/Globulin Ratio 0.7 (0.8-1.8); Bilirubin, Total 0.4 mg/dL (0.1-1.0); Bun/Creatinine Ratio 19.1 (12.0-20.0); Calcium, Blood 7.8 mg/dL (8.5-10.1); Creatinine, Blood 1.41 mg/dL (0.60-1.20); Globulin, Blood 3.1 g/dL (2.2-4.0); Potassium, Blood 4.1 mmol/L (3.5-5.5); Total Protein, Blood 5.2 g/dL (6.4-8.2)
--- NOTE | 2019-06-25 02:45 | NUR ---
PLACED CALL TO DR ANDRADE, WHEN CALL RETURNED, REPORTED LOW BP AND MAP 58 ,ASYMPTOMATIC. WILL BE GIVING ANOTHER 500 ML FLUID BOLUS. WITH IN [address] ANDRADE REVIEWED CHART, MD ASKS THIS MANAGEMENT ACCOUNTS MANAGER TO ASK PT "HOW AGGRESSIVE HE WOULD LIKE OUR TREATMENT TO ADVANCE TO. AND REMIND PT HE CAN GO TO ICU FOR CENTRAL LINE AND PRESSORS. AND STILL BE A DNR." THIS MANAGEMENT ACCOUNTS MANAGER REVIEWED THIS CONVERSATION OF MD TO PT AND THE PT LAUGHS AND SAYS "THIS LOW BP IS VERY COMMON AND THEY CONTINUE TO TREAT ALL THESE PROBLEMS AND KEEP REPEATING ALL THESE SWABS TO TRY AND FIND SOMETHING , AND I AM GETTING VERY TIRED OF ALL THESE PROCEDURES. IF I STAND UP MY BLOOD PRESSURE WILL BE JUST FINE AND I FEEL FIME.I DO NOT THINK I NEED TO GO TO ICU FOR MORE TREATMENT W/ MEDICATIONS.
--- NOTE | 2019-06-25 04:15 | NUR ---
ALLOWED TO STAND W/ CLOSE OBSERVATION FOR S/S OF LOW BP ISSUES. ASYMPTOMATIC. VERY STRONG GAIT. ALERT . TALKATIVE. ABSOLULELY NO PAIN OR DISCOMFORT. BP TAKEN W/ THIS ACTIVITY = 91/50, MAP 63. FEW MORE VS TAKEN AND DR ANDRADE NOT CALLED . NS BACK TO 100 HR POST 500 ML BOLUS. DANGLED FOR ABOUT 30 MIN/ NO DISTRESS AND ANXIOUS TO GET BACK TO SLEEP/ CONT TO STATE HE DID NOT WANAT TO GO TO ICU FOR CENTRAL LINE AND PRESSORS . EXPRESSES UNDERSTANDING OF ALL DISCUSSION. FEW SIPS OF H2O AND NO OTHER FLUIDS REQUESTED. VOIDING QS STANDS TO VOID. SR 70 , 2L CONT AND CONT OXIMETRY
--- NOTE | 2019-06-25 05:45 | NUR ---
AWAKE SUDDENLY AND REPORTS VERY CHILLED. AND SHIVERING. TEMP 98.3 FEW WARM BLANKETS. STANDING DUE TO BACK ACHE. TYLENOL GIVEN FOR ACHE AND BP IMPROVED WHEN OOB PT HAD REMINDED STAFF. STEADY GAIT. AND STOOD A FEW MINUTES AND NO ADVERSE EFFECTS W/ THIS ACTIVITY.
--- NOTE | 2019-06-25 17:14 | NUR ---
SHIFT SUMMARY PT A&Ox4; CALM AND COOPERATIVE WITH CARE. PT RESTING IN BED FOR MAJORITY OF SHIFT. PT REPORTS BODY ACHES THIS EVENING; MEDICATED WITH TYLENOL x1. PT REPORTS CHILLS AND SHIVERING; AFEBRILE T/O SHIFT; PROVIDED WARM BLANKETS AND ADJUST ROOM HEAT. PT DENIES SOB, NASUEA, DIZZINESS AND CHEST PAIN/PRESSURE T/O SHIFT. BP LABILE; PT STATES THIS IS HIS BASELINE; ASSYMPTOMATIC. PT RECEIVING IV FLUIDS AND ANTIBIOITICS. BLOOD NOTED AT [facility] ON [facility]; DR EVANS NOTIFIED. POST VOID BLADDER SCAN 17ML; WILL CONTINUE TO MONITOR. OTHER VSS. NO OTHER ACUTE CHANGES NOTED DURING SHIFT. WILL CONTINUE TO MONITOR UNTIL REPORT GIVEN TO ONCOMING RN.
--- NOTE | 2019-06-25 21:47 | NUR ---
ASSUMED CARE OF PATIENT AT APPROXIMATELY 1915 FROM OSCAR Ching RN. PATIENT ALERT AND ORIENTED X4; INDEPENDENT IN ROOM; WHEN IVF INFUSING INDEPDENENT TO BEDSIDE COMMODE. PATIENT DENIES PAIN, NUMBNESS, TINGLING, DIZZINESS OR NAUSEA. PATIENT REQUESTED DIET BE ADVANCE; SANA BUCKNER CALLED AROUND 2129; CHANGES FROM FULL LIQUID TO CARDIAC DIET. NSR ON TELE; OXYGEN SATURATION ABOVE 90% ON ROOM AIR. IN ISOLATION TO R/O COVID. USES URINAL BEDSIDE AT TIMES. PATIENT HAS BLOODY DISCHARGE FROM [facility] DUE TO RECENT OUTPATIENT PROCEDURE; PATIENT REPORTS BLEEDING HAD DECREASED; ALMOST STOPPED. PATIENT CURRENTLY RESTING IN BED; CALL LIGHT IN REACH; BED IN LOWEST POSISTION; WILL CONTINUE TO MONITOR AND ASSESS UNTIL END OF SHIFT.
[2019-06-26 03:40] LABS: Hematocrit 34.3 % (37.0-53.0); Hemoglobin 10.8 g/dL (13.5-17.5); Mean Corpuscular HGB 29.5 pg (26.0-34.0); Mean Corpuscular HGB Conc 31.5 g/dL (31.5-36.5); Mean Corpuscular Volume 94 fL (80-100); Mean Platelet Volume 9.5 fL (9.1-12.4); Platelet Count 121 K/mm3 (150-400); RDW Coefficient Variation 14.5 % (11.7-14.2); RDW Standard Deviation 49.4 fL (35.1-46.3); Red Blood Cell Count 3.66 M/mm3 (4.30-5.90); White Blood Cell Count 4.86 K/mm3 (4.00-11.30)
[2019-06-26 04:04] LABS: Albumin, Blood 2.2 g/dL (3.4-5.0); Albumin/Globulin Ratio 0.7 (0.8-1.8); Bilirubin, Total 0.6 mg/dL (0.1-1.0); Bun/Creatinine Ratio 17.9 (12.0-20.0); Calcium, Blood 8.3 mg/dL (8.5-10.1); Creatinine, Blood 1.34 mg/dL (0.60-1.20); Globulin, Blood 3.2 g/dL (2.2-4.0); Potassium, Blood 4.3 mmol/L (3.5-5.5); Total Protein, Blood 5.4 g/dL (6.4-8.2)
[2019-06-26 04:12] LABS: BAND PERCENT MAN 3 % (0-8); BASOPHILS ABSOLUTE MAN 0.04 K/mm3 (0.00-0.23); BASOPHILS PERCENT MAN 1 % (0-2); EOSINOPHILS ABSOLUTE MAN 0.19 K/mm3 (0.00-0.68); EOSINOPHILS PERCENT MAN 4 % (0-6); LYMPHOCYTES ABSOLUTE MAN 0.48 K/mm3 (0.84-5.20); LYMPHOCYTES PERCENT MAN 10 % (21-46); MONOCYTES ABSOLUTE MAN 0.09 K/mm3 (0.16-1.47); MONOCYTES PERCENT MAN 2 % (4-13); NEUTROPHILS ABSOLUTE MAN 4.03 K/mm3 (1.96-9.15); SEG NEUTROPHILS PERCENT MAN 80 % (41-73); TOTAL CELLS COUNTED 100
--- NOTE | 2019-06-26 04:15 | NUR ---
CBG OF 64 IN AM LABS; PATIENT REPORTS HE FELT LIKE HE HAD THE CHILLS EARLIER BUT ASSUMED HE MIGHT BE GETTING A FEVER. GIVEN ORANGE JUICE AND PAKO CRACKERS. PATIENT REQUESTED TAPIOCA PUDDING; REQUEST THROUGH NURSING SCANNING CLERK; NONE ON FLOOD. PATIENT REPORTS HE HAS ONLY BEEN DRINKING LIQUIDS; WILL REASSESS CBG IN ONE HOUR PER AUTO DAMAGE ESTIMATOR.
--- NOTE | 2019-06-26 05:20 | NUR ---
CBG 102 AFTER OJocelyne AND PAKO CHAKRABORTY
--- NOTE | 2019-06-26 06:12 | NUR ---
NO OTHER ACUTE CHANGES TO REPORT. PATIENT SLEPT ABOUT SIX HOURS LAST NIGHT. VSS. WILL CONTINUE TO MONITOR AND ASSESS UNTIL END OF SHIFT.
--- NOTE | 2019-06-26 07:30 | NUR ---
ASSUMED CARE: PT CURRENTLY SINUS TACH 106. LAB AT BEDSIDE. BEING R/O FOR COVID.
--- NOTE | 2019-06-26 12:17 | NUR ---
Case Conference Note. Pt currently in isolation for COVID 19 R/O. Due to isolation restrictions this RN did not visit with Pt. Will plan to visit with Pt if isolation is lifted. Discussed case with Bedside BIANCA Kendall. Faiza reports no imediate concerns but would benefit from Advanced Care Planning once isolation is lifted. Reviewed Pt's chart. Pt's code status is currently DNR. Pt does not have a POLST on file. Reviewed case with [facility] [employer] Twirler Margi, with Margi reporting no POLST on file in [place] [facility] system. Palliative Care will F/U with Pt once isolation is D/C. Pt would benefit from Advanced Care Planning and completing a POLST. Spoke with Bedside BIANCA Kendall. Faiza will place POLST for [place] [facility] doctor to see and discuss with Pt.
--- NOTE | 2019-06-26 18:36 | NUR ---
SHIFT SUMMARY: PT PLEASANT AND COOPERATIVE. AMBULATORY IN ROOM. DENIES FURTHER BLOODY DRAINAGE FROM URETHRA. CONTINUING ISOLATION A COVID R/O. DENIES NEEDS OR CONCERNS.
--- NOTE | 2019-06-26 22:02 | NUR ---
Assumed care Pt is in isolation for R/O COVID-19 pending results. Pt is independant in room and exhibits steady gait while this RN in room with pt. VSS. Alert and oriented, conversing appropriately with staff. Involved in care and asking appropriate questions to seek further understanding. Pt swallows pills whole with water without difficulty. See shift assessment for detailed systems assessment. Pt has bladder cancer and chemo precautions in place. Pt voiding into urinal at bedside. Pt able to express needs with call light. Will continue to monitor.
[2019-06-27 03:37] LABS: BASOPHILS ABSOLUTE AUTO 0.02 K/mm3 (0.00-0.23); BASOPHILS PERCENT AUTO 1 % (0-2); EOSINOPHILS ABSOLUTE AUTO 0.24 K/mm3 (0.00-0.68); EOSINOPHILS PERCENT AUTO 6 % (0-6); Hematocrit 35.8 % (37.0-53.0); Hemoglobin 11.4 g/dL (13.5-17.5); IMMATURE GRAN ABSOLUTE AUTO 0.03 K/mm3 (0.00-0.10); IMMATURE GRAN PERCENT AUTO 1 % (0-1); LYMPHOCYTES PERCENT AUTO 28 % (21-46); MONOCYTES ABSOLUTE AUTO 0.37 K/mm3 (0.16-1.47); MONOCYTES PERCENT AUTO 9 % (4-13); Mean Corpuscular HGB 29.9 pg (26.0-34.0); Mean Corpuscular HGB Conc 31.8 g/dL (31.5-36.5); Mean Corpuscular Volume 94 fL (80-100); Mean Platelet Volume 9.8 fL (9.1-12.4); NEUTROPHILS ABSOLUTE AUTO 2.46 K/mm3 (1.96-9.15); NEUTROPHILS PERCENT AUTO 57 % (41-73); Platelet Count 144 K/mm3 (150-400); RDW Coefficient Variation 14.9 % (11.7-14.2); RDW Standard Deviation 51.1 fL (35.1-46.3); Red Blood Cell Count 3.81 M/mm3 (4.30-5.90); White Blood Cell Count 4.32 K/mm3 (4.00-11.30)
[2019-06-27 03:56] LABS: Albumin, Blood 2.3 g/dL (3.4-5.0); Albumin/Globulin Ratio 0.6 (0.8-1.8); Bilirubin, Total 0.3 mg/dL (0.1-1.0); Bun/Creatinine Ratio 17.4 (12.0-20.0); C-REACTIVE PROTEIN, EXT RANGE 7.2 mg/dL (0.000-0.300); Calcium, Blood 9.4 mg/dL (8.5-10.1); Creatinine, Blood 1.55 mg/dL (0.60-1.20); Globulin, Blood 3.6 g/dL (2.2-4.0); Potassium, Blood 4.2 mmol/L (3.5-5.5); Total Protein, Blood 5.9 g/dL (6.4-8.2)
--- NOTE | 2019-06-27 05:28 | NUR ---
Shift Summary Pt with COVID-19 results pending at this time. VSS this shift, normothermic. Independant in room. Breathing is even and unlabored. Abx infused throughout night per orders. Pt calls appropriately, expresses needs PRN. Chemo precautions for bladder cancer. No acute changes from previous note. No acute concerns. Will continue to montior.
--- NOTE | 2019-06-27 06:21 | NUR ---
fulfillment coordinator, Shelley, informed this RN that lab has rejected pt's COVID-19 specimen d/t error in label. Provider called by this RN to inquire if re-test is desired. Per provider, obtain another COVID-19 Specimen and send to lab.
--- NOTE | 2019-06-27 07:41 | NUR ---
ASSUMED CARE: PT RESTING IN BED AT THIS TIME. NSR AT 73 ON TELE. NO ACUTE NEEDS OR CONCERNS.
[2019-06-27 10:31] LABS: Vancomycin, Trough 11.2 ug/mL (5.0-10.0)
[2019-06-27] MEDS ORDERED: OMEP20ER PO (14:11)
[2019-06-27] MEDS ORDERED: Florastor250 MG PO (14:12)
[2019-06-27] MEDS ORDERED: LEVO750 PO (14:13)
--- NOTE | 2019-06-27 15:04 | NUR ---
PT GIVEN DISCHARGE INSTRUCTIONS REGARDING ISOLATING AT HOME AND LETTING DRS OFFICE KNOW ABOUT HIS PENDING RESULT IF HE HAS NOT RECIEVED THE RESULTS BACK. INSTRUCTED PT ABOUT FOLLOW UP APPOINTMENTS AND MEDICATIONS TO TAKE AND TO HOLD HIS LISINOPRIL UNTIL SPEAKING WITH DR EVANS. DILEEP [place] WNL. ESCORTED OUT VIA WHEEL CHAIR BY HOSPITAL STAFF.
== END 2019-06-27 14:41 | disposition home or self-care (01) | DRG 871 ==
LOC: ER 18:12 → PCU 20:55
PROVIDERS: Emergency Medicine; Internal Medicine; Nurse Practitioner Acute Care; Pharmacist; ADMIT Internal Medicine
DX: A41.9 Sepsis, unspecified organism (principal); I26.99 Other pulmonary embolism without acute cor pulmonale; R65.21 Severe sepsis with septic shock; J18.9 Pneumonia, unspecified organism; J96.01 Acute respiratory failure with hypoxia; J44.0 Chronic obstructive pulmonary disease with (acute) lower respiratory infection; I12.9 Hypertensive chronic kidney disease with stage 1 through stage 4 chronic kidney disease, or unspecified chronic kidney disease; N18.3 Chronic kidney disease, stage 3 (moderate); C67.9 Malignant neoplasm of bladder, unspecified; I95.9 Hypotension, unspecified; E78.5 Hyperlipidemia, unspecified; I73.9 Peripheral vascular disease, unspecified; Z66 Do not resuscitate; K21.9 Gastro-esophageal reflux disease without esophagitis; Z87.891 Personal history of nicotine dependence
CPT/HCPCS: 0099U; 36415; 71045; 80053; 80202; 81001; 82728; 82947; 83605; 83615; 83880; 84145; 84484; 85025; 85610; 85651; 85730; 86140; 87040; 87086; 93005; 93010; 94760; 96361; 96365; 96367; 99285-25; A9270; J0456; J0696; J1956; J2543; J3370; J7030; J7040; J7050; U0002

== ENCOUNTER → 2019-08-16 | Outpatient (CLI) | payer OTHER ==
[~2019-08-16] MED LIST changes: +CALCITONIN-SAL3.7 ML; +FURO20 PO; +LEVO750 PO; +POTA10T PO; +VITAMIN D31000 UNI1 PO
[2019-08-16 09:38] LABS: BASOPHILS ABSOLUTE AUTO 0.07 K/mm3 (0.00-0.23); BASOPHILS PERCENT AUTO 1 % (0-2); EOSINOPHILS ABSOLUTE AUTO 1.08 K/mm3 (0.00-0.68); EOSINOPHILS PERCENT AUTO 18 % (0-6); Hematocrit 38.9 % (37.0-53.0); Hemoglobin 12.7 g/dL (13.5-17.5); IMMATURE GRAN ABSOLUTE AUTO 0.03 K/mm3 (0.00-0.10); IMMATURE GRAN PERCENT AUTO 1 % (0-1); LYMPHOCYTES PERCENT AUTO 23 % (21-46); MONOCYTES ABSOLUTE AUTO 0.79 K/mm3 (0.16-1.47); MONOCYTES PERCENT AUTO 13 % (4-13); Mean Corpuscular HGB 30.3 pg (26.0-34.0); Mean Corpuscular HGB Conc 32.6 g/dL (31.5-36.5); Mean Corpuscular Volume 93 fL (80-100); Mean Platelet Volume 9.5 fL (9.1-12.4); NEUTROPHILS ABSOLUTE AUTO 2.77 K/mm3 (1.96-9.15); NEUTROPHILS PERCENT AUTO 45 % (41-73); Platelet Count 270 K/mm3 (150-400); RDW Coefficient Variation 15.5 % (11.7-14.2); RDW Standard Deviation 52.4 fL (35.1-46.3); Red Blood Cell Count 4.19 M/mm3 (4.30-5.90); White Blood Cell Count 6.14 K/mm3 (4.00-11.30)
[2019-08-16 09:40] LABS: Albumin, Blood 3.3 g/dL (3.4-5.0); Albumin/Globulin Ratio 0.7 (0.8-1.8); Bilirubin, Total 0.3 mg/dL (0.1-1.0); Bun/Creatinine Ratio 10.5 (12.0-20.0); Creatinine, Blood 4.94 mg/dL (0.60-1.20); Globulin, Blood 4.5 g/dL (2.2-4.0); Potassium, Blood 4.5 mmol/L (3.5-5.5); Total Protein, Blood 7.8 g/dL (6.4-8.2)
[2019-08-16 09:43] LABS: Calcium, Blood 13.3 mg/dL (8.5-10.1)
[2019-08-19 11:10] LABS: Uric Acid, Blood 5.2 mg/dL (3.5-7.2)
[2019-08-19 11:59] LABS: Phosphorus, Blood 5.2 mg/dL (2.5-4.9)
[2019-08-19 23:11] LABS: TANDEM-R OSTASE 37.4 ug/L (7.6-24.4)
[2019-08-20 15:09] LABS: A/G RATIO 1.1 (0.7-1.7); ALBUMIN 3.1 g/dL (2.9-4.4); ALPHA-1-GLOBULIN 0.2 g/dL (0.0-0.4); ALPHA-2-GLOBULIN 0.7 g/dL (0.4-1.0); BETA GLOBULIN 0.8 g/dL (0.7-1.3); GAMMA GLOBULIN 1.4 g/dL (0.4-1.8); GLOBULIN, TOTAL 3.1 g/dL (2.2-3.9); IMMUNOGLOBULIN A, QN, SERUM 449 mg/dL (61-437); IMMUNOGLOBULIN G, QN, SERUM 1223 mg/dL (603-1613); IMMUNOGLOBULIN M, QN, SERUM 158 mg/dL (15-143); M-SPIKE 0.3 g/dL (Not Observed); PROTEIN, TOTAL, SERUM 6.2 g/dL (6.0-8.5)
== END ==
LOC: LAB EV 09:15 → LAB SHORT 09:15
PROVIDERS: Internal Medicine Hematology & Oncology; Internal Medicine Nephrology; Physician Assistant
DX: L29.9 Pruritus, unspecified (principal); E83.52 Hypercalcemia; R53.83 Other fatigue; D51.8 Other vitamin B12 deficiency anemias; D52.8 Other folate deficiency anemias; N18.5 Chronic kidney disease, stage 5; D63.1 Anemia in chronic kidney disease; N25.81 Secondary hyperparathyroidism of renal origin; E66.9 Obesity, unspecified; E78.00 Pure hypercholesterolemia, unspecified; R76.9 Abnormal immunological finding in serum, unspecified; R94.5 Abnormal results of liver function studies; R94.6 Abnormal results of thyroid function studies
CPT/HCPCS: 80053; 82306; 82330; 82607; 82746; 82784; 83883; 83970; 84080; 84100; 84155; 84165; 84443; 84550; 85025; 86334

== ENCOUNTER → 2019-08-19 | Outpatient (CLI) | payer OTHER ==
[2019-08-19 12:53] LABS: Albumin, Blood 3.1 g/dL (3.4-5.0); Albumin/Globulin Ratio 0.7 (0.8-1.8); Bilirubin, Direct 0.2 mg/dL (0.0-0.3); Bilirubin, Indirect 0.3 mg/dL (0.1-0.7); Bilirubin, Total 0.5 mg/dL (0.1-1.0); Bun/Creatinine Ratio 11.3 (12.0-20.0); Creatinine, Blood 3.99 mg/dL (0.60-1.20); Globulin, Blood 4.2 g/dL (2.2-4.0); Phosphorus, Blood 4.9 mg/dL (2.5-4.9); Potassium, Blood 4.5 mmol/L (3.5-5.5); Total Protein, Blood 7.3 g/dL (6.4-8.2)
[2019-08-21 01:09] LABS: HBSAG SCREEN Negative (Negative); HEP A AB, IGM Negative (Negative); HEP B CORE AB, IGM Negative (Negative); HEP C VIRUS AB 0.2 (0.0-0.9)
== END | disposition home or self-care (01) ==
LOC: LAB 12:00 → LAB SHORT 12:00
PROVIDERS: Internal Medicine Nephrology
DX: N18.5 Chronic kidney disease, stage 5 (principal); D63.1 Anemia in chronic kidney disease; R76.9 Abnormal immunological finding in serum, unspecified; R94.5 Abnormal results of liver function studies; R94.6 Abnormal results of thyroid function studies
CPT/HCPCS: 80053; 80074; 82248; 84100

== ENCOUNTER → 2019-08-20 | Outpatient (CLI) | payer OTHER ==
[2019-08-20 11:42] LABS: Alanine Aminotransfer (ALT/SGP 32 U/L (12-78); Albumin/Globulin Ratio 0.7 (0.8-1.8); Alk Phos 327 U/L (50-136); Anion Gap 2 mmol/L (6-16); Aspartate Aminotrans (AST/SGOT 38 U/L (12-37); Bilirubin, Total 0.4 mg/dL (0.1-1.0); Blood Urea Nitrogen 45 mg/dL (8-24); Bun/Creatinine Ratio 11.5 (12.0-20.0); CO2, Blood 30 mmol/L (21-32); Calcium, Blood 12.4 mg/dL (8.5-10.1); Chloride, Blood 111 mmol/L (98-108); Creatinine, Blood 3.93 mg/dL (0.60-1.20); Globulin, Blood 4.1 g/dL (2.2-4.0); Glomerular Filtration Rate 15 (60-); Glucose, Blood 103 mg/dL (70-99); Potassium, Blood 4.9 mmol/L (3.5-5.5); Sodium, Blood 143 mmol/L (136-145); Total Protein, Blood 7.1 g/dL (6.4-8.2)
[2019-08-22 23:10] LABS: ALKALINE PHOSPHATASE, S 299 IU/L (39-117); BONE FRACTION: 33 % (12-68); INTESTINAL FRAC.: 0 % (0-18); LIVER FRACTION: 67 % (13-88)
== END | disposition home or self-care (01) ==
LOC: LAB SHORT 11:10 → LAB 11:10
PROVIDERS: Internal Medicine Hematology & Oncology
DX: Z12.5 Encounter for screening for malignant neoplasm of prostate (principal); E83.52 Hypercalcemia; M19.90 Unspecified osteoarthritis, unspecified site
CPT/HCPCS: 80053; 84075; 84080; G0103

== ENCOUNTER 2019-08-21 14:03 | Inpatient (IN) | payer OTHER ==
[~2019-08-21] VITALS: Ht 170.2 cm; Wt 66.9 kg
[~2019-08-21 14:03] MED LIST changes: -CALCITONIN-SAL3.7 ML; -FURO20 PO; -POTA10T PO; -VITAMIN D31000 UNI1 PO
[2019-08-21] MEDS ORDERED: VITAMIN D31000 UNI1 PO ×2 (15:16)
[2019-08-21] MEDS ORDERED: LEVFLO500 PO ×2 (15:18)
[2019-08-21 19:05] LABS: Albumin, Blood 3.1 g/dL (3.4-5.0); Albumin/Globulin Ratio 0.7 (0.8-1.8); Bilirubin, Direct 0.2 mg/dL (0.0-0.3); Bilirubin, Indirect 0.1 mg/dL (0.1-0.7); Bilirubin, Total 0.3 mg/dL (0.1-1.0); Globulin, Blood 4.7 g/dL (2.2-4.0); Total Protein, Blood 7.8 g/dL (6.4-8.2)
--- NOTE | 2019-08-21 19:42 | NUR ---
SHIFT SUMMARY: PATIENT IN NO DISTRESS, BREATHING EASILY ON RA. DENIES PAIN. BREATH SOUNDS COARSE AND MOIST IN RLL. USING URINAL INDEPENDENTLY. GAVE EDUCATION ABOUT PROCEDURES PLANNED FOR TOMORROW (PERMA CATH PLACEMENT, CHEST CT) AND PT VERBALIZED UNDERSTANDING BUT ASKED THAT THIS AUTHOR CALL DAUGHTER TO RELAY SAME EDUCATION, WHICH WAS DONE. TOLERATED DIET FOR DINNER.
--- NOTE | 2019-08-21 21:46 | NUR ---
I CALLED DR COSTA AND ADVISED OF AVAILABLE LAB RESULTS. HE ORDERED ABG DONE STAT PER PREVIOUS ORDERS.
[2019-08-21 21:57] LABS: PCO2 Arterial 39.7 mmHg (35-45); PO2 Arterial 69.9 mmHg (80-100); pH Blood Arterial 7.41 (7.35-7.45)
--- NOTE | 2019-08-21 23:23 | NUR ---
AFTER TAKING MUCOMYST,PT C/O BURNING TO THRAOT. STATES MEDS WENT DOWN, BUT HE REPORTS SUDDEN ONSET OF BURNING IN THROAT. DENIES SOB.DENIES FEELING TIGHTNESS TO THROAT.I CALLED DR COSTA AND REPORTED ABOVE. ORDERED MED DCD AND ORDERS RECEIVED FOR PROTONIX AND AMPHOJEL.
[2019-08-22 05:07] LABS: Hematocrit 34.5 % (37.0-53.0); Hemoglobin 10.9 g/dL (13.5-17.5)
[2019-08-22 05:24] LABS: Albumin, Blood 2.8 g/dL (3.4-5.0); Anion Gap 3 mmol/L (6-16); Blood Urea Nitrogen 45 mg/dL (8-24); Bun/Creatinine Ratio 11.4 (12.0-20.0); CO2, Blood 28 mmol/L (21-32); Calcium, Blood 12.1 mg/dL (8.5-10.1); Chloride, Blood 113 mmol/L (98-108); Creatinine, Blood 3.96 mg/dL (0.60-1.20); Glomerular Filtration Rate 15 (60-); Glucose, Blood 87 mg/dL (70-99); Magnesium, Blood 2.2 mg/dL (1.6-2.4); Phosphorus, Blood 4.1 mg/dL (2.5-4.9); Potassium, Blood 4.3 mmol/L (3.5-5.5); Sodium, Blood 144 mmol/L (136-145)
--- NOTE | 2019-08-22 09:22 | NUR ---
SUMMARY PT REMAINS NPO PENDING POTENTIAL PERMACATH PLACEMENT TODAY. DR COSTA ORDEREED 0900 CREAT AND GFR AND WILL DETEREMINE FURTHER PLAN OFCARE WITH RESULTS CALLED AT 10 AM.
[2019-08-22 09:31] LABS: Creatinine, Blood 3.82 mg/dL (0.60-1.20)
[2019-08-22 15:36] LABS: Creatinine, Blood 3.64 mg/dL (0.60-1.20)
--- NOTE | 2019-08-22 19:35 | NUR ---
SHIFT SUMMARY: PATIENT A&O; CALM AND COOPERATIVE WITH CARE. PATIENT IMPULSIVE; POOR USAGE OF CALL LIGHT; BED & CHAIR ALARMS ON FOR SAFETY. TELE IN PLACE; SR c BBB DURING MORNING ASSESSMENT. PERMACATH PLACEMENT ON HOLD R/T IMPROVING KIDNEY FUNCTION, PER NEPHROLOGY (DR COSTA). MEDICATED FOR LEG PAIN PER EMAR. REPORT GIVEN TO ONCOMING RN.
[2019-08-23 05:45] LABS: BASOPHILS ABSOLUTE AUTO 0.07 K/mm3 (0.00-0.23); BASOPHILS PERCENT AUTO 1 % (0-2); EOSINOPHILS ABSOLUTE AUTO 0.99 K/mm3 (0.00-0.68); EOSINOPHILS PERCENT AUTO 13 % (0-6); Hematocrit 38.5 % (37.0-53.0); Hemoglobin 12.1 g/dL (13.5-17.5); IMMATURE GRAN ABSOLUTE AUTO 0.01 K/mm3 (0.00-0.10); IMMATURE GRAN PERCENT AUTO 0 % (0-1); LYMPHOCYTES ABSOLUTE AUTO 1.59 K/mm3 (0.84-5.20); LYMPHOCYTES PERCENT AUTO 21 % (21-46); MONOCYTES ABSOLUTE AUTO 1.08 K/mm3 (0.16-1.47); MONOCYTES PERCENT AUTO 14 % (4-13); Mean Corpuscular HGB Conc 31.4 g/dL (31.5-36.5); Mean Platelet Volume 9.7 fL (9.1-12.4); NEUTROPHILS ABSOLUTE AUTO 3.83 K/mm3 (1.96-9.15); NEUTROPHILS PERCENT AUTO 51 % (41-73); Platelet Count 299 K/mm3 (150-400); RDW Coefficient Variation 15.7 % (11.7-14.2); RDW Standard Deviation 55.7 fL (35.1-46.3); Red Blood Cell Count 4.03 M/mm3 (4.30-5.90); White Blood Cell Count 7.57 K/mm3 (4.00-11.30)
[2019-08-23 05:47] LABS: Mean Corpuscular Volume 96 fL (80-100)
[2019-08-23 06:11] LABS: Magnesium, Blood 2.3 mg/dL (1.6-2.4)
[2019-08-23 06:20] LABS: Albumin, Blood 3.3 g/dL (3.4-5.0); Albumin/Globulin Ratio 0.7 (0.8-1.8); Bilirubin, Total 0.3 mg/dL (0.1-1.0); Calcium, Blood 12.8 mg/dL (8.5-10.1); Creatinine, Blood 3.58 mg/dL (0.60-1.20); Globulin, Blood 4.9 g/dL (2.2-4.0); Phosphorus, Blood 3.7 mg/dL (2.5-4.9); Thyroid Stimulating Hormone 1.44 uIU/mL (0.360-4.800); Total Protein, Blood 8.2 g/dL (6.4-8.2)
--- NOTE | 2019-08-23 07:25 | NUR ---
RECORDS ASSISTANT SUMMARY PT AAOX4 AND PLEASANT. PT STILL IMPULSIVE AND DOES NOT ALWAYS CALL FOR ASSISTANCE TO THE BATHROOM. BED ALARM ON FOR SAFETY. KIDNEY FUNCTION VERY SLIGHTLY IMPROVED WITH AM LABS. PT ALSO HAD 2 INSTANCES OF EMESIS THROUGHOUT THE NIGHT. OTHERWISE PT HAS RESTED WELL THROUGH THE NIGHT. VSS, WILL CONTINUE TO MONITOR.
[2019-08-23 09:49] LABS: Protein, Urine Quantitative 99.5 mg/dL (0.0-11.9)
[2019-08-23 10:10] LABS: HBSAG SCREEN Negative (Negative); HEP A AB, IGM Negative (Negative); HEP B CORE AB, IGM Negative (Negative); HEP C VIRUS AB 0.1 (0.0-0.9)
[2019-08-23] MEDS ORDERED: FURO20 PO ×2 (12:53)
[2019-08-23] MEDS ORDERED: POTA10T PO ×2 (12:53)
[2019-08-23] MEDS ORDERED: CALCITONIN-SAL3.7 ML ×2 (12:57)
--- NOTE | 2019-08-23 15:15 | NUR ---
PATIENT DISCHARGE: PATIENT DISCHARGED TO HOME THIS SHIFT. MEDICATION RECONCILIATION COMPLETED; MED LIST FAXED TO [facility]. DISCHARGE EDUCATION COMPLETED WITH PATIENT. PATIENT TRANSPORTED TO EXIT BY [facility] STAFF WITH WHEELCHAIR AT 1455. PATIENT DEPARTED [facility] VIA PRIVATE AUTO.
== END 2019-08-23 15:04 | disposition home or self-care (01) | DRG 682 ==
LOC: MEDS 14:03
PROVIDERS: Internal Medicine Nephrology; ADMIT Hospitalist
DX: N17.9 Acute kidney failure, unspecified (principal); J18.9 Pneumonia, unspecified organism; I26.99 Other pulmonary embolism without acute cor pulmonale; C67.9 Malignant neoplasm of bladder, unspecified; J44.9 Chronic obstructive pulmonary disease, unspecified; E78.5 Hyperlipidemia, unspecified; M19.90 Unspecified osteoarthritis, unspecified site; Z87.891 Personal history of nicotine dependence; I73.9 Peripheral vascular disease, unspecified; Z86.711 Personal history of pulmonary embolism; E83.52 Hypercalcemia; E88.09 Other disorders of plasma-protein metabolism, not elsewhere classified; D64.9 Anemia, unspecified; R09.02 Hypoxemia; E87.5 Hyperkalemia; N18.5 Chronic kidney disease, stage 5; I12.9 Hypertensive chronic kidney disease with stage 1 through stage 4 chronic kidney disease, or unspecified chronic kidney disease
CPT/HCPCS: 36415; 36600; 76770; 80053; 80069; 80074; 80076; 82533; 82565; 82803; 83615; 83735; 84100; 84145; 84156; 84443; 85014; 85018; 85025; 85379; 86038; 86317; A9270; A9270-GY; J0630; J1940; J1956; J7050

== ENCOUNTER → 2019-08-28 | Outpatient (CLI) | payer OTHER ==
[~2019-08-28] MED LIST changes: +CALCITONIN-SAL3.7 ML; +FURO20 PO; +POTA10T PO; +VITAMIN D31000 UNI1 PO
== END | disposition home or self-care (01) ==
LOC: LAB 13:00 → LAB SHORT 13:00 → LAB FUT 08-26 14:45
PROVIDERS: Internal Medicine Nephrology
DX: N18.4 Chronic kidney disease, stage 4 (severe) (principal); D63.1 Anemia in chronic kidney disease; D51.8 Other vitamin B12 deficiency anemias; D52.8 Other folate deficiency anemias; D50.9 Iron deficiency anemia, unspecified; R76.9 Abnormal immunological finding in serum, unspecified; R94.5 Abnormal results of liver function studies; R94.6 Abnormal results of thyroid function studies
CPT/HCPCS: 81050; 82570

== ENCOUNTER → 2020-01-20 | Outpatient (CLI) | payer OTHER ==
[2020-01-22 17:25] LABS: CORONAVIRUS (COVID19) CSH-NRL Negative (Negative)
== END | disposition home or self-care (01) ==
LOC: LAB SHORT 11:50
PROVIDERS: Family Medicine
DX: Z20.828 Contact with and (suspected) exposure to other viral communicable diseases (principal)
CPT/HCPCS: U0003

== ENCOUNTER → 2020-03-02 | Outpatient (CLI) | payer OTHER | END | disposition home or self-care (01) | LOC: LAB 23:00 | DX: J98.4 Other disorders of lung (principal) | CPT/HCPCS: 87102 ==

== ENCOUNTER → 2021-04-05 | Outpatient (CLI) | payer OTHER | LOC: LAB SHORT 09:31 | PROVIDERS: Internal Medicine Nephrology | DX: N18.30 Chronic kidney disease, stage 3 unspecified (principal); D63.1 Anemia in chronic kidney disease; N25.81 Secondary hyperparathyroidism of renal origin; E55.9 Vitamin D deficiency, unspecified; E78.00 Pure hypercholesterolemia, unspecified; R76.9 Abnormal immunological finding in serum, unspecified; R94.5 Abnormal results of liver function studies; R94.6 Abnormal results of thyroid function studies | CPT/HCPCS: 81050; 82043; 82570; 84156 ==

== ENCOUNTER → 2021-07-16 | Outpatient (CLI) | payer OTHER ==
[2021-07-16 17:47] LABS: Source, Urine Clean Catch
[2021-07-16 18:13] LABS: Albumin, Blood 3.1 g/dL (3.4-5.0); Albumin/Globulin Ratio 0.6 (0.8-1.8); Bilirubin, Total 0.5 mg/dL (0.1-1.0); Bun/Creatinine Ratio 12.6 (12.0-20.0); Calcium, Blood 9.1 mg/dL (8.5-10.1); Creatinine, Blood 2.23 mg/dL (0.60-1.20); Globulin, Blood 5.1 g/dL (2.2-4.0); Potassium, Blood 4.1 mmol/L (3.5-5.5); Total Protein, Blood 8.2 g/dL (6.4-8.2)
[2021-07-16 18:29] LABS: BASOPHILS ABSOLUTE AUTO 0.03 K/mm3 (0.00-0.23); BASOPHILS PERCENT AUTO 0 % (0-2); EOSINOPHILS ABSOLUTE AUTO 0.01 K/mm3 (0.00-0.68); EOSINOPHILS PERCENT AUTO 0 % (0-6); Hematocrit 43.4 % (37.0-53.0); Hemoglobin 13.9 g/dL (13.5-17.5); IMMATURE GRAN ABSOLUTE AUTO 0.07 K/mm3 (0.00-0.10); IMMATURE GRAN PERCENT AUTO 1 % (0-1); LYMPHOCYTES ABSOLUTE AUTO 1.94 K/mm3 (0.84-5.20); LYMPHOCYTES PERCENT AUTO 14 % (21-46); MONOCYTES ABSOLUTE AUTO 1.53 K/mm3 (0.16-1.47); MONOCYTES PERCENT AUTO 11 % (4-13); Mean Corpuscular HGB 29.5 pg (26.0-34.0); Mean Corpuscular Volume 92 fL (80-100); NEUTROPHILS ABSOLUTE AUTO 10.41 K/mm3 (1.96-9.15); NEUTROPHILS PERCENT AUTO 74 % (41-73); RDW Coefficient Variation 14.7 % (11.7-14.2); RDW Standard Deviation 49.7 fL (35.1-46.3); Red Blood Cell Count 4.71 M/mm3 (4.30-5.90); White Blood Cell Count 13.99 K/mm3 (4.00-11.30)
[2021-07-16 19:14] LABS: Amorphous Light (0-Heavy); Bacteria Not Seen /hpf; Mucus Light (0-Heavy); Red Blood Cells, Urine 0-2 /hpf (0-2); Squamous Epithelial Cells Few /hpf (Few); White Blood Cells, Urine Rare /hpf (0-5)
[2021-07-16 19:15] LABS: Renal Epithelial Few /hpf (0-Rare); Transitional Epithelial Cells Few /hpf (0-Rare)
[2021-07-16 19:23] LABS: Mean Platelet Volume 10.7 fL (9.1-12.4); Platelet Count 158 K/mm3 (150-400)
== END | disposition home or self-care (01) ==
LOC: LAB 17:46 → LAB SHORT 17:46
PROVIDERS: Physician Assistant
DX: R31.9 Hematuria, unspecified (principal); R50.9 Fever, unspecified
CPT/HCPCS: 80053; 81015; 85025; 87086

== ENCOUNTER → 2021-07-17 | Outpatient (CLI) | payer OTHER ==
[2021-07-17 10:04] LABS: Albumin, Blood 2.7 g/dL (3.4-5.0); Albumin/Globulin Ratio 0.6 (0.8-1.8); Bilirubin, Total 0.4 mg/dL (0.1-1.0); Bun/Creatinine Ratio 14.3 (12.0-20.0); Calcium, Blood 8.5 mg/dL (8.5-10.1); Creatinine, Blood 2.38 mg/dL (0.60-1.20); Globulin, Blood 4.8 g/dL (2.2-4.0); Total Protein, Blood 7.5 g/dL (6.4-8.2)
[2021-07-17 10:21] LABS: BASOPHILS ABSOLUTE AUTO 0.04 K/mm3 (0.00-0.23); BASOPHILS PERCENT AUTO 0 % (0-2); EOSINOPHILS ABSOLUTE AUTO 0.01 K/mm3 (0.00-0.68); EOSINOPHILS PERCENT AUTO 0 % (0-6); Hematocrit 40.1 % (37.0-53.0); IMMATURE GRAN ABSOLUTE AUTO 0.05 K/mm3 (0.00-0.10); IMMATURE GRAN PERCENT AUTO 1 % (0-1); LYMPHOCYTES ABSOLUTE AUTO 0.88 K/mm3 (0.84-5.20); LYMPHOCYTES PERCENT AUTO 9 % (21-46); MONOCYTES ABSOLUTE AUTO 0.91 K/mm3 (0.16-1.47); MONOCYTES PERCENT AUTO 9 % (4-13); Mean Corpuscular HGB 29.3 pg (26.0-34.0); Mean Corpuscular HGB Conc 32.4 g/dL (31.5-36.5); Mean Corpuscular Volume 91 fL (80-100); Mean Platelet Volume 10.8 fL (9.1-12.4); NEUTROPHILS ABSOLUTE AUTO 8.34 K/mm3 (1.96-9.15); NEUTROPHILS PERCENT AUTO 82 % (41-73); Platelet Count 144 K/mm3 (150-400); RDW Coefficient Variation 14.6 % (11.7-14.2); RDW Standard Deviation 48.4 fL (35.1-46.3); Red Blood Cell Count 4.43 M/mm3 (4.30-5.90); White Blood Cell Count 10.23 K/mm3 (4.00-11.30)
== END ==
LOC: LAB SHORT 09:49
PROVIDERS: Physician Assistant
DX: J18.9 Pneumonia, unspecified organism (principal)
CPT/HCPCS: 80053; 85025

== ENCOUNTER → 2021-07-18 | Outpatient (CLI) | payer OTHER ==
[2021-07-18 10:10] LABS: BASOPHILS ABSOLUTE AUTO 0.02 K/mm3 (0.00-0.23); BASOPHILS PERCENT AUTO 0 % (0-2); EOSINOPHILS PERCENT AUTO 0 % (0-6); Hematocrit 37.8 % (37.0-53.0); Hemoglobin 12.3 g/dL (13.5-17.5); IMMATURE GRAN ABSOLUTE AUTO 0.04 K/mm3 (0.00-0.10); IMMATURE GRAN PERCENT AUTO 1 % (0-1); LYMPHOCYTES ABSOLUTE AUTO 0.47 K/mm3 (0.84-5.20); LYMPHOCYTES PERCENT AUTO 8 % (21-46); MONOCYTES ABSOLUTE AUTO 0.51 K/mm3 (0.16-1.47); MONOCYTES PERCENT AUTO 9 % (4-13); Mean Corpuscular HGB 29.5 pg (26.0-34.0); Mean Corpuscular HGB Conc 32.5 g/dL (31.5-36.5); Mean Corpuscular Volume 91 fL (80-100); Mean Platelet Volume 10.7 fL (9.1-12.4); NEUTROPHILS ABSOLUTE AUTO 4.79 K/mm3 (1.96-9.15); NEUTROPHILS PERCENT AUTO 82 % (41-73); Platelet Count 143 K/mm3 (150-400); RDW Coefficient Variation 14.6 % (11.7-14.2); RDW Standard Deviation 48.4 fL (35.1-46.3); Red Blood Cell Count 4.17 M/mm3 (4.30-5.90); White Blood Cell Count 5.83 K/mm3 (4.00-11.30)
[2021-07-18 11:10] LABS: Albumin, Blood 2.7 g/dL (3.4-5.0); Albumin/Globulin Ratio 0.7 (0.8-1.8); Bilirubin, Total 0.4 mg/dL (0.1-1.0); Bun/Creatinine Ratio 15.8 (12.0-20.0); Calcium, Blood 8.4 mg/dL (8.5-10.1); Creatinine, Blood 2.15 mg/dL (0.60-1.20); Globulin, Blood 3.9 g/dL (2.2-4.0); Potassium, Blood 3.5 mmol/L (3.5-5.5); Total Protein, Blood 6.6 g/dL (6.4-8.2)
[2021-07-18 12:46] LABS: Source, Urine Clean Catch
[2021-07-18 13:05] LABS: Red Blood Cells, Urine 0-2 /hpf (0-2); Squamous Epithelial Cells Rare /hpf (Few); White Blood Cells, Urine 0-2 /hpf (0-5)
[2021-07-18 13:10] LABS: Amorphous Light (0-Heavy); Mucus Light (0-Heavy); Renal Epithelial Rare /hpf (0-Rare); Transitional Epithelial Cells Rare /hpf (0-Rare)
== END ==
LOC: LAB SHORT 10:04
PROVIDERS: Physician Assistant
DX: J18.1 Lobar pneumonia, unspecified organism (principal); R82.998 Other abnormal findings in urine
CPT/HCPCS: 80053; 81015; 85025

== ENCOUNTER → 2021-07-19 | Outpatient (CLI) | payer OTHER ==
[2021-07-19 10:15] LABS: BASOPHILS ABSOLUTE AUTO 0.02 K/mm3 (0.00-0.23); BASOPHILS PERCENT AUTO 0 % (0-2); EOSINOPHILS ABSOLUTE AUTO 0.01 K/mm3 (0.00-0.68); EOSINOPHILS PERCENT AUTO 0 % (0-6); Hematocrit 37.2 % (37.0-53.0); Hemoglobin 11.9 g/dL (13.5-17.5); IMMATURE GRAN ABSOLUTE AUTO 0.05 K/mm3 (0.00-0.10); IMMATURE GRAN PERCENT AUTO 1 % (0-1); LYMPHOCYTES ABSOLUTE AUTO 0.62 K/mm3 (0.84-5.20); LYMPHOCYTES PERCENT AUTO 8 % (21-46); MONOCYTES ABSOLUTE AUTO 0.57 K/mm3 (0.16-1.47); MONOCYTES PERCENT AUTO 8 % (4-13); Mean Corpuscular HGB 29.2 pg (26.0-34.0); Mean Corpuscular Volume 91 fL (80-100); Mean Platelet Volume 11.1 fL (9.1-12.4); NEUTROPHILS ABSOLUTE AUTO 6.13 K/mm3 (1.96-9.15); NEUTROPHILS PERCENT AUTO 83 % (41-73); Platelet Count 147 K/mm3 (150-400); RDW Coefficient Variation 14.8 % (11.7-14.2); RDW Standard Deviation 49.3 fL (35.1-46.3); Red Blood Cell Count 4.08 M/mm3 (4.30-5.90)
[2021-07-19 10:24] LABS: Albumin, Blood 2.4 g/dL (3.4-5.0); Albumin/Globulin Ratio 0.5 (0.8-1.8); Bilirubin, Total 0.4 mg/dL (0.1-1.0); Bun/Creatinine Ratio 11.7 (12.0-20.0); Calcium, Blood 8.6 mg/dL (8.5-10.1); Creatinine, Blood 2.39 mg/dL (0.60-1.20); Globulin, Blood 4.8 g/dL (2.2-4.0); Potassium, Blood 3.5 mmol/L (3.5-5.5); Total Protein, Blood 7.2 g/dL (6.4-8.2)
== END ==
LOC: LAB SHORT 10:10
PROVIDERS: Physician Assistant
DX: J18.1 Lobar pneumonia, unspecified organism (principal)
CPT/HCPCS: 80053; 85025